=== PATIENT | female | born 1995 | race Caucasian/White ===

== ENCOUNTER 2021-11-04 19:53 | Emergency (ER) | payer MEDICAID, OTHER ==
[~2021-11-04] VITALS: Ht 162.6 cm; Wt 68.0 kg
[2021-11-04] MEDS ORDERED: IBUPROFEN 600 MG TAB PO ONE (20:15)
[2021-11-05 00:43] VITALS: BP 111/66
[2021-11-05] MEDS ORDERED: CEPHALEXIN 250 MG CAP PO ONE (02:15)
[2021-11-05] MEDS ORDERED: CEPH-509 PO (02:18)
[2021-11-05] MEDS ORDERED: IBUP200C14 PO (02:18)
== END 2021-11-05 02:39 | disposition home or self-care (01) ==
LOC: ER 19:58
DX: N61.0 Mastitis without abscess (principal); R50.9 Fever, unspecified